=== PATIENT | female | born 1960 | race Caucasian/White ===

== ENCOUNTER 2018-05-10 21:24 | Emergency (ER) | payer SELFPAY ==
[~2018-05-10] VITALS: Ht 160 cm; Wt 70.8 kg
[~2018-05-10 21:24] MED LIST: METF500T PO
[2018-05-10 21:35] VITALS: BP 134/101
--- NOTE | 2018-05-10 21:42 | NUR ---
PT IN STABLE CONDITION, RETURNED TO LOBBY
--- NOTE | 2018-05-10 22:51 | NUR ---
PATIENT TO ER BED 3.
--- NOTE | 2018-05-10 22:53 | NUR ---
58/F CAME IN W C/O GENERALIZED HEADACHE X 1 WEEK. DENIES TRAUMA, REPORTS BLURRY VISION AND PHOTO-PHOBIA. DENIES N/V, FEVER/CHILLS. PMH: DM
[2018-05-10] MEDS ORDERED: DIAZEPAM 5 MG TAB PO ONE (23:30)
[2018-05-10] MEDS ORDERED: KETOROLAC 30 MG/ML VIAL IM ONE (23:30)
--- NOTE | 2018-05-10 23:34 | NUR ---
PT TAKEN TO CT
--- NOTE | 2018-05-11 00:43 | NUR ---
Patient discharged with v/s stable. Written and verbal after care instructions given and explained. Patient alert, oriented and verbalized understanding of instructions. Ambulatory with steady gait. All questions addressed prior to discharge. ID band removed. Patient advised to follow up with PMD. Rx of NAPROSYN, VALIUM given. Patient educated on indication of medication including possible reaction and side effects. Opportunity to ask questions provided and answered.
[2018-05-11 00:46] VITALS: BP 130/61
== END 2018-05-11 00:43 | disposition home or self-care (01) ==
LOC: MED 21:24
DX: R51 Headache (principal); M54.2 Cervicalgia; E11.9 Type 2 diabetes mellitus without complications; Z79.84 Long term (current) use of oral hypoglycemic drugs
CPT/HCPCS: 70450; 81002; 81025; 96372; 99284; J1885

== ENCOUNTER 2018-12-10 23:45 | Emergency (ER) | payer SELFPAY ==
[~2018-12-10] VITALS: Ht 160 cm; Wt 73.5 kg
[2018-12-10 23:55] VITALS: BP 119/58
--- NOTE | 2018-12-10 23:58 | NUR ---
TO LOBBY A/W BED, MARY ARZATE NOTED
[2018-12-11 00:33] LABS: BILIRUBIN,URINE NEGATIVE (NEGATIVE); BLOOD, URINE NEGATIVE (NEGATIVE); COLOR,URINE YELLOW (YELLOW); LEUKOCYTE ESTERASE ,URINE 1+ (NEGATIVE); NITRITE, URINE NEGATIVE (NEGATIVE); UGLUCOSE NEGATIVE (NEGATIVE)
[2018-12-11 00:39] LABS: APPEARANCE,URINE SLIGHTLY HAZY (CLEAR)
[2018-12-11 00:44] LABS: RBC,URINE 0-5 /HPF (0-5)
--- NOTE | 2018-12-11 00:56 | NUR ---
PT AMBULATED TO BED 2.
--- NOTE | 2018-12-11 01:00 | NUR ---
58/F PRESENTS TO ED, C/O BODYACHES, DYSURIA, EPIGASTRIC AND BL LOWER ABD PAIN, NUMBNESS ON BL HANDS AND BL FEET. PT REPORTS NAUSEA, DENIES VOMITING. DENIES FEVER/CHILLS, CONSTIPATION OR DIARRHEA. PT AOX4, GCS 15, RR EVEN AND UNLABORED. HX DM, GERD/GASTRITIS RX NONCOMPLIANT
--- NOTE | 2018-12-11 02:13 | NUR ---
DR DOUGLAS AT BEDSIDE
[2018-12-11] MEDS ORDERED: KETOROLAC 60 MG/2 ML VIAL IM ONE (02:20)
[2018-12-11 02:49] VITALS: BP 112/67
--- NOTE | 2018-12-11 02:50 | NUR ---
Patient discharged with v/s stable. Written and verbal after care instructions given and explained. Patient alert, oriented and verbalized understanding of instructions. Ambulatory with steady gait. All questions addressed prior to discharge. ID band removed. Patient advised to follow up with PMD. Rx of CIPRO, PYRIDIUM, MOTRIN, NORCO, ZOFRAN given. Patient educated on indication of medication including possible reaction and side effects. Opportunity to ask questions provided and answered.
== END 2018-12-11 02:44 | disposition home or self-care (01) ==
LOC: MED 23:45
DX: N12 Tubulo-interstitial nephritis, not specified as acute or chronic (principal); M79.10 Myalgia, unspecified site; E11.9 Type 2 diabetes mellitus without complications; K21.9 Gastro-esophageal reflux disease without esophagitis; Z79.84 Long term (current) use of oral hypoglycemic drugs
CPT/HCPCS: 81001; 82948; 87086; 96372; 99283; J1885

== ENCOUNTER 2018-12-21 10:40 | Emergency (ER) | payer MEDICAID ==
[~2018-12-21] VITALS: Ht 165.1 cm; Wt 70.4 kg
[2018-12-21 10:45] VITALS: BP 108/65
--- NOTE | 2018-12-21 10:55 | NUR ---
BIB FAMILY WITH C/O NAUSEA,DYSURIA,RT HIP PAIN RADIATING TO HER RLE X 5 DAYS. DENIES INJURY, VOMITING OR DIARRHEA.HX; DM. PATIENT POSITIONED FOR COMFORT; HOB ELEVATED; BEDRAILS UP X2; BED DOWN. ER MD MADE AWARE OF PT STATUS.
--- NOTE | 2018-12-21 11:05 | NUR ---
Dr. Paulson evaluating patient at bedside.
[2018-12-21] MEDS ORDERED: LEVOFLOXACIN 500 MG TAB PO ONE (11:15)
[2018-12-21] MEDS ORDERED: MORPHINE SULFATE 4 MG/ML SYR IM ONE (11:15)
[2018-12-21] MEDS ORDERED: KETOROLAC 60 MG/2 ML VIAL IM ONE (11:15)
--- NOTE | 2018-12-21 11:55 | NUR ---
Patient returned from XRAY. RN re-evaluating patient at bedside.
--- NOTE | 2018-12-21 13:19 | NUR ---
SON AT BEDSIDE.
[2018-12-21 13:25] VITALS: BP 100/61
--- NOTE | 2018-12-21 13:25 | NUR ---
Patient discharged with v/s stable. Written and verbal after care instructions given and explained. Patient alert, oriented and verbalized understanding of instructions. Ambulatory with steady gait. All questions addressed prior to discharge. ID band removed. Patient advised to follow up with PMD. Rx of BACTRIM & VOLTAREN given. Patient educated on indication of medication including possible reaction and side effects. Opportunity to ask questions provided and answered.
== END 2018-12-21 13:25 | disposition home or self-care (01) ==
LOC: MED 10:40
DX: M54.41 Lumbago with sciatica, right side (principal); N39.0 Urinary tract infection, site not specified; E11.9 Type 2 diabetes mellitus without complications; K21.9 Gastro-esophageal reflux disease without esophagitis; Z79.84 Long term (current) use of oral hypoglycemic drugs
CPT/HCPCS: 72100; 73502; 81002; 81025; 96372; 99283; J1885; J2270

== ENCOUNTER 2019-01-25 03:05 | Emergency (ER) | payer MEDICAID ==
[~2019-01-25] VITALS: Ht 154.9 cm; Wt 71.7 kg
[2019-01-25 03:11] VITALS: BP 124/56
--- NOTE | 2019-01-25 03:11 | NUR ---
PT TAKEN TO BED 6
--- NOTE | 2019-01-25 03:22 | NUR ---
Dr. Lane evaluating patient at bedside.
--- NOTE | 2019-01-25 03:22 | NUR ---
58/F DRIVEN TO ED BY FAMILY, C/O R LOWER BACK PAIN, RADIATING TO RLE, X3 DAYS. PT REPORTS SIMILAR SYMPTOMS 1 MONTH AGO, WAS SEEN HERE IN ER, DX DEGENERATIVE ARTHRITIS AND SCIATICA. PT DENIES FEVER, N/V/D, CONSTIPATION OR DYSURIA. AOX4, GCS 15, SKIN NORMAL WARM AND DRY, RR EVEN AND UNLABORED. HX DM, GASTRITIS, DEGENERATIVE ARTHRITIS, SCIATICA RX VOLTAREN WITHOUT RELIEF
[2019-01-25] MEDS ORDERED: CYCLOBENZAPRINE 10 MG TAB PO ONE (03:25)
[2019-01-25] MEDS ORDERED: KETOROLAC 30 MG/ML VIAL IM ONE (03:25)
[2019-01-25] MEDS ORDERED: MORPHINE SULFATE 4 MG/ML SYR IM ONE (03:55)
--- NOTE | 2019-01-25 03:55 | NUR ---
PT C/O PERSISTENT 8/10 R LOWER BACK PAIN, RADIATING TO RLE DESPITE TORADOL IM AND FLEXERIL PO. DR OSBORN MADE AWARE. PER DR OSBORN, VERBAL ORDER FOR MORPHINE 4MG IM ONCE AT THIS TIME.
[2019-01-25 04:41] VITALS: BP 130/54
--- NOTE | 2019-01-25 04:41 | NUR ---
Patient discharged with v/s stable. Written and verbal after care instructions given and explained. Patient alert, oriented and verbalized understanding of instructions. Ambulatory with steady gait. All questions addressed prior to discharge. ID band removed. Patient advised to follow up with PMD. Rx of FLEXERIL, IBUPROFEN given. Patient educated on indication of medication including possible reaction and side effects. Opportunity to ask questions provided and answered.
== END 2019-01-25 04:41 | disposition home or self-care (01) ==
LOC: MED 03:05
DX: M54.41 Lumbago with sciatica, right side (principal); E11.9 Type 2 diabetes mellitus without complications; K21.9 Gastro-esophageal reflux disease without esophagitis; Z79.84 Long term (current) use of oral hypoglycemic drugs
CPT/HCPCS: 96372; 99283; J1885; J2270

== ENCOUNTER 2019-01-25 16:45 | Emergency (ER) | payer MEDICAID ==
[~2019-01-25] VITALS: Ht 162.6 cm; Wt 70.3 kg
[2019-01-25 17:14] VITALS: BP 106/57
--- NOTE | 2019-01-25 17:20 | NUR ---
PT AMBULATED TO ER BED 06
--- NOTE | 2019-01-25 17:34 | NUR ---
PT BIB FAMILY FOR LOWER BACK PAIN X3 DAYS. PT REPORTS INTERMITENT LOWER BACK PAIN THAT RADIATES DOWN RIGHT LEG THAT INCREASES WHEN LAYING ON RT SIDE. PT DENIES TRAUMA, NO VISIBLE SWELLING, BRUISING, REDNESS, OR DEFORMITY. +CMS. VSS. ER TO SEE PT. MEDHX:DM RX:METFORMIN
[2019-01-25] MEDS ORDERED: MORPHINE SULFATE 4 MG/ML SYR IM ONE (19:15)
[2019-01-25] MEDS ORDERED: KETOROLAC 30 MG/ML VIAL IM ONE (19:15)
--- NOTE | 2019-01-25 19:30 | NUR ---
PT STATES 9/10 PAIN AT THIS TIME, WAS HERE LAST NIGHT AND RECIEVED THE SAME MEDS. INSURANCE DID NOT COVER HER MEDS SO SHE DID NOT START HER MEDS. PT SPEAKING IN COMPLETE SENTENCES W/ CLEAR SPEECH. COMFORT AND SAFETY MEASURES PROVIDED.
[2019-01-25 20:07] VITALS: BP 120/75
--- NOTE | 2019-01-25 20:07 | NUR ---
Patient discharged with v/s stable. Written and verbal after care instructions given and explained. Patient alert, oriented and verbalized understanding of instructions. Ambulatory with steady gait. All questions addressed prior to discharge. ID band removed. Patient advised to follow up with PMD. Rx of VALIUM AND NAPROSYN given. Patient educated on indication of medication including possible reaction and side effects. Opportunity to ask questions provided and answered.
== END 2019-01-25 20:07 | disposition home or self-care (01) ==
LOC: MED 16:45
DX: M54.41 Lumbago with sciatica, right side (principal); E11.9 Type 2 diabetes mellitus without complications; K21.9 Gastro-esophageal reflux disease without esophagitis; Z79.84 Long term (current) use of oral hypoglycemic drugs
CPT/HCPCS: 96372; 99283; J1885; J2270

== ENCOUNTER 2019-01-29 00:14 | Emergency (ER) | payer MEDICAID ==
[~2019-01-29] VITALS: Ht 157.5 cm; Wt 74.8 kg
[2019-01-29 00:19] VITALS: BP 150/84
--- NOTE | 2019-01-29 00:19 | NUR ---
PT PRESENTS TO ED WITH SEVERE RIGHT HIP, POSTERIOR UPPER/LOWER LEG, AND KNEE PAIN X3 DAYS. PT DENIES TRAUMA. NO BRUISING, REDNESS, OR EDEMA NOTED. CMS INTACT BILAT LOWER EXTREMITIES. NO DEFORMITIES NOTED. SEVERE 10/10 PAIN. WHEEL CHAIR ASSISTED TO BED. ASSISTED INTO BED. DIFFICULTY BENDING HIP AND KNEE. A&OX4 WITH VSS. ER MD AWARE. CONTINUE TO MONITOR.
--- NOTE | 2019-01-29 00:19 | NUR ---
PT TAKEN TO BED 5
--- NOTE | 2019-01-29 00:26 | NUR ---
Dr. Lane evaluating patient at bedside.
[2019-01-29] MEDS ORDERED: MORPHINE SULFATE 4 MG/ML SYR IVP ONE ×2 (00:30→01:35)
--- NOTE | 2019-01-29 00:51 | NUR ---
PT TAKEN TO CT
--- NOTE | 2019-01-29 01:05 | NUR ---
PT RETURN FROM CT
--- NOTE | 2019-01-29 01:22 | NUR ---
Ultrasound at bedside.
--- NOTE | 2019-01-29 01:29 | NUR ---
PT IN BED RESTING WITH EYES OPEN. PAIN HAS NOT CHANGED. DR OSBORN NOTIFIED. VSS. CONTINUE TO MONITOR.
[2019-01-29] MEDS ORDERED: CYCLOBENZAPRINE 10 MG TAB PO ONE (02:10)
[2019-01-29] MEDS ORDERED: cefTRIAXone 1,000 MG in LIDOCAINE MPF 1% - 5 mL VIAL 2.1 ML IM ONE (02:15)
[2019-01-29 02:16] LABS: APPEARANCE,URINE CLEAR (CLEAR); BILIRUBIN,URINE NEGATIVE (NEGATIVE); BLOOD, URINE TRACE-L (NEGATIVE); COLOR,URINE YELLOW (YELLOW); LEUKOCYTE ESTERASE ,URINE 2+ (NEGATIVE); NITRITE, URINE NEGATIVE (NEGATIVE); PH,URINE 5.5 (5.0-9.0); UGLUCOSE NEGATIVE (NEGATIVE)
[2019-01-29 02:33] LABS: RBC,URINE 0-5 /HPF (0-5)
[2019-01-29 02:34] LABS: WBC,URINE 16-25 (MOD) /HPF (0-5)
[2019-01-29 03:02] VITALS: BP 114/64
--- NOTE | 2019-01-29 03:02 | NUR ---
DISCHARGE PAPERS GIVEN TO PT. 12/30 PAIN BUT TOLLERABLE. PT ABLE TO AMBULATE SLOWY BY STEADY WITH PAIN PRESENT. CMS INTACT BILAT LOWER EXTREMITIES. VSS. RX OF MACROBID AND TRAMADOL GIVEN. SIDE EFFECTS EXPLAINED. INSTRUCTED TO F/U WITH PVP AND WHEN TO RETURN TO ER. PT VERBALLIZED UNDERSTANDING OF DC INSTRUCTIONS. ALL QUESTIONS ANSWERED. WHEEL CHAIR ESCORTED OUT OF ER TO VEHICLE.
== END 2019-01-29 03:02 | disposition home or self-care (01) ==
LOC: MED 00:14
DX: M54.41 Lumbago with sciatica, right side (principal); N39.0 Urinary tract infection, site not specified; E11.9 Type 2 diabetes mellitus without complications; K21.9 Gastro-esophageal reflux disease without esophagitis; Z79.84 Long term (current) use of oral hypoglycemic drugs
CPT/HCPCS: 72192; 81001; 87086; 93971; 96372; 96374; 96375; 99284; J0696; J2001; J2270; Q0092

== ENCOUNTER 2019-04-25 04:42 | Emergency (ER) | payer MEDICAID ==
[~2019-04-25] VITALS: Ht 157.5 cm; Wt 68.9 kg
[2019-04-25 04:46] VITALS: BP 119/59
[2019-04-25] MEDS ORDERED: KETOROLAC 60 MG/2 ML VIAL IM ONE (06:05)
[2019-04-25] MEDS ORDERED: MORPHINE SULFATE 4 MG/ML SYR IVP ONE (07:40)
[2019-04-25 08:40] VITALS: BP 105/62
== END 2019-04-25 08:38 | disposition home or self-care (01) ==
LOC: MED 04:42
DX: M54.40 Lumbago with sciatica, unspecified side (principal); R51 Headache; E11.9 Type 2 diabetes mellitus without complications; K21.9 Gastro-esophageal reflux disease without esophagitis; Z79.84 Long term (current) use of oral hypoglycemic drugs
CPT/HCPCS: 81002; 81025; 96372; 96374; 99283; J1885; J2270

== ENCOUNTER 2019-06-11 21:15 | Emergency (ER) | payer MEDICAID ==
[~2019-06-11] VITALS: Ht 154.9 cm; Wt 70.8 kg
[2019-06-11 21:25] VITALS: BP 124/64
--- NOTE | 2019-06-11 21:27 | NUR ---
PT AMBULATED TO LOBBY.
--- NOTE | 2019-06-11 22:57 | NUR ---
PT AMBULATED TO BED 01.
--- NOTE | 2019-06-12 | NUR ---
PT C/O DIFFICULTY EATING. PT STATES SHE TRIES TO EAT BUT DOESNT HAVE AN APPETITE. C/O INTERMITTENT ABD PAIN. ABD SOFT, ROUND,NON TENDER BOWEL SOUNDS X4 QUAD. SHARP PAIN IN CHEST AT 16OO TODAY 1 TIME. RR EVEN, UNLABORED. DENIES SOB. PT RESTING IN BED, CALM AND PLEASANT. MEDHX: DM, ARTHRITIS ALLERGIES: DENIES
[2019-06-12] MEDS ORDERED: PANTOPRAZOLE 40 MG TABEC PO ONE (00:10)
--- NOTE | 2019-06-12 00:43 | NUR ---
PT RESTING IN BED WITH EYES CLOSED, VSS. NO COMPLAINTS AT THIS TIME
--- NOTE | 2019-06-12 01:24 | NUR ---
Patient discharged with v/s stable. Written and verbal after care instructions given and explained. Patient alert, oriented and verbalized understanding of instructions. Ambulatory with to home. All questions addressed prior to discharge. ID band removed. Patient advised to follow up with PMD. Rx of PROTONIX given. Patient educated on indication of medication including possible reaction and side effects. Opportunity to ask questions provided and answered.
[2019-06-12 01:25] VITALS: BP 124/64
== END 2019-06-12 01:24 | disposition home or self-care (01) ==
LOC: MED 21:15
DX: K29.70 Gastritis, unspecified, without bleeding (principal); K21.9 Gastro-esophageal reflux disease without esophagitis; E11.9 Type 2 diabetes mellitus without complications; Z79.84 Long term (current) use of oral hypoglycemic drugs
CPT/HCPCS: 70360; 99283

== ENCOUNTER 2019-08-04 05:35 | Emergency (ER) | payer MEDICAID ==
[~2019-08-04] VITALS: Ht 162.6 cm; Wt 69.4 kg
--- NOTE | 2019-08-04 05:35 | NUR ---
pt ambulated to bed #7
[2019-08-04 05:50] VITALS: BP 125/55
--- NOTE | 2019-08-04 05:50 | NUR ---
59 Y/O FEMALE C/O OF NECK PAIN X3 DAYS. PATIENT STATES, " I HAVEN'T BEEN ABLE TO SLEEP BECAUSE OF THE PAIN". DENIES N/V/D/FEVER CHILLS". PATIENT SO THAT SHE TOOK IBUPROFEN AND TYLEONOL FOR THE PAIN WITH SOME RELIEF. A/0 X4 AND FOLLOWS COMMANDS. BREATHING UNLABORED AND SYMMETRICAL. SOME RANGE OF MOTION NOTED ON THE NECK. PAIN IS A 9/10 WITH FACIAL GRIMACING. ERMD MADE AWARE. SIDE RAILS X1. WILL CONTINUE TO MONITOR. PMH:DIABETES NKDA RX:METFORMIN
--- NOTE | 2019-08-04 06:01 | NUR ---
Dr. Guillen examining patient.
[2019-08-04] MEDS ORDERED: KETOROLAC 60 MG/2 ML VIAL IM ONE (06:05)
--- NOTE | 2019-08-04 06:13 | NUR ---
Sandro hurtado in ED - 08/04/19 at 0622 by SALLIE PT RETURN FROM XRAY
--- NOTE | 2019-08-04 06:22 | NUR ---
PT RETURN FROM XRAY
--- NOTE | 2019-08-04 06:22 | NUR ---
Sandro hurtado in [facility] - 08/04/19 at 0622 by SALLIE PT RETURN FROM CT
[2019-08-04] MEDS ORDERED: LORazepam 2 MG/ML VIAL IM ONE (06:45)
[2019-08-04 07:10] VITALS: BP 125/55
--- NOTE | 2019-08-04 07:11 | NUR ---
Patient discharged with v/s stable. Written and verbal after care instructions given and explained. Patient alert, oriented and verbalized understanding of instructions. Ambulatory with steady gait. All questions addressed prior to discharge. ID band removed. Patient advised to follow up with PMD. Rx of MOTRIN; ROBAXIN; TRAMADOL given. Patient educated on indication of medication including possible reaction and side effects. Opportunity to ask questions provided and answered.
== END 2019-08-04 07:11 | disposition home or self-care (01) ==
LOC: MED 05:35
DX: M43.6 Torticollis (principal); E11.9 Type 2 diabetes mellitus without complications; K21.9 Gastro-esophageal reflux disease without esophagitis; Z79.899 Other long term (current) drug therapy
CPT/HCPCS: 72040; 96372; 99283; J1885; J2060

== ENCOUNTER 2020-02-02 04:10 | Emergency (ER) | payer MEDICAID ==
[~2020-02-02] VITALS: Ht 160 cm; Wt 72.1 kg
[2020-02-02 04:19] VITALS: BP 121/62
--- NOTE | 2020-02-02 04:25 | NUR ---
59 YEAR OLD FEMALE COMPLAINS OF NECK PAIN X 5 DAYS. PER PT HER NECK PAIN HAS GOTTEN PROGRESSIVELY WORSE, STILL ABLE TO MOVE WITH ROM. PATIENT AOX4, BREATHING EVEN AND UNLABORED, SKIN WARM AND DRY. BED IN LOWEST POSIITON, LOCKED, BED RAIL UPX1. PMH - DM2, ARTHRITIS (SPINE) ALLERGIES - NKA
--- NOTE | 2020-02-02 04:25 | NUR ---
PT AMBULATED TO BED 2 WITH STEADY GAIT. NEGATIVE COVID SCREEN.
--- NOTE | 2020-02-02 04:27 | NUR ---
Dr. Hdez examining patient.
[2020-02-02] MEDS ORDERED: LORazepam 2 MG/ML VIAL IM ONE (04:35)
[2020-02-02] MEDS ORDERED: KETOROLAC 30 MG/ML VIAL IM ONE (04:35)
--- NOTE | 2020-02-02 04:47 | NUR ---
PER STAKING ENGINEER THEY DO NOT HAVE ANY LIDODERM PATCH MEDICATION, HERMILOD MADE AWARE
[2020-02-02 05:10] VITALS: BP 121/62
--- NOTE | 2020-02-02 05:10 | NUR ---
Patient discharged with v/s stable. Written and verbal after care instructions about cervical sprain and torticollis given and explained. Patient alert, oriented and verbalized understanding of instructions. Ambulatory with steady gait. All questions addressed prior to discharge. ID band removed. Patient advised to follow up with PMD. Rx of lidocaine 5% transdermal patch given. Patient educated on indication of medication including possible reaction and side effects. Opportunity to ask questions provided and answered.
[2020-02-02] MEDS ORDERED: LIDOCAINE 5% 1 EA PATCH TP SCH (09:00)
== END 2020-02-02 05:10 | disposition home or self-care (01) ==
LOC: MED 04:10
DX: M54.2 Cervicalgia (principal); G89.29 Other chronic pain; E11.9 Type 2 diabetes mellitus without complications; K21.9 Gastro-esophageal reflux disease without esophagitis; Z79.84 Long term (current) use of oral hypoglycemic drugs
CPT/HCPCS: 96372; 99284; J1885; J2060

== ENCOUNTER 2020-02-05 12:44 | Emergency (ER) | payer MEDICAID ==
[~2020-02-05] VITALS: Ht 154.9 cm; Wt 71.7 kg
[2020-02-05 13:02] VITALS: BP 124/70
[2020-02-05] MEDS ORDERED: KETOROLAC 60 MG/2 ML VIAL IM ONE (13:10)
--- NOTE | 2020-02-05 13:31 | NUR ---
COVERING PRIMARY RN FOR LUNCH RELIEF -- 59/F FROM TRIAGE FOR NECK PAIN. DENIES INJURY/TRAUMA. PT UNABLE TO ROTATE NECK DUE TO PAIN. IN BED FOR MSE.
--- NOTE | 2020-02-05 13:50 | NUR ---
PT REPORTS MILD RELIEF OF PAIN WITH TORADOL. RATES PAIN AT 6/10.
--- NOTE | 2020-02-05 14:01 | NUR ---
Patient discharged with v/s stable. Written and verbal after care instructions given and explained. Patient alert, oriented and verbalized understanding of instructions. Ambulatory with steady gait. All questions addressed prior to discharge. ID band removed. Patient advised to follow up with PMD. Rx of NORCO, MOTRIN given. Patient educated on indication of medication including possible reaction and side effects. Opportunity to ask questions provided and answered.
[2020-02-05 14:02] VITALS: BP 124/70
== END 2020-02-05 14:02 | disposition home or self-care (01) ==
LOC: MED 12:44
DX: S13.4XXA Sprain of ligaments of cervical spine, initial encounter (principal); E11.9 Type 2 diabetes mellitus without complications; K21.9 Gastro-esophageal reflux disease without esophagitis; Z98.890 Other specified postprocedural states; Z79.84 Long term (current) use of oral hypoglycemic drugs; X58.XXXA Exposure to other specified factors, initial encounter; Y93.89 Activity, other specified; Y92.89 Other specified places as the place of occurrence of the external cause; Y99.8 Other external cause status
CPT/HCPCS: 96372; 99283; J1885

== ENCOUNTER 2020-03-20 17:40 | Emergency (ER) | payer MEDICAID, SELFPAY ==
[~2020-03-20] VITALS: Ht 162.6 cm; Wt 91.2 kg
[2020-03-20 17:40] VITALS: BP 138/109
--- NOTE | 2020-03-20 18:26 | NUR ---
PATIENT MOVED FROM TENT TO BED 9
--- NOTE | 2020-03-20 18:56 | NUR ---
pt bib family c/o anxiety x 1 hour s/p pt son sts "my mom hyperventilating because she got a phone call about my Aunt that upset." HX-DM, covid pos 02/29/2020, pain 0/10, accu 196. PT DENIES N/V/D; SKIN IS INTACT, PINK/WARM/DRY; AAOX4, PERRL, WITH EVEN AND STEADY GAIT; LUNGS CLEAR BL, BREATHING UNLABORED; HR EVEN AND REGULAR, BL PERIPHERAL PULSES PRESENT; BS ACTIVE X4, NO TENDERNESS TO PALPATION. PT DENIES ANY FEVER, CP, SOB, OR COUGH AT THIS TIME; PT STATES 0/10 PAIN AT THIS TIME; VSS; PATIENT POSITIONED FOR COMFORT; HOB ELEVATED; BEDRAILS UP X2; BED DOWN.
--- NOTE | 2020-03-20 18:58 | NUR ---
pt c/o quan upper mid-line cp with no sob er md notifted. xray at bedside
--- NOTE | 2020-03-20 19:25 | NUR ---
REPORT RECEIVED FROM ENEIDA BERNABE, TRANSFER OF CARE AT THIS TIME
--- NOTE | 2020-03-20 20:43 | NUR ---
PT ALERT AND AWAKE, BREATHING EVEN AND UNLABORED. PT INFORMED WAITING FOR ERMD
--- NOTE | 2020-03-20 21:09 | NUR ---
URINE DIP GIVEN TO MARINE
[2020-03-20 21:12] VITALS: BP 138/109
--- NOTE | 2020-03-20 21:12 | NUR ---
Patient discharged by Dr Garrison. Written and verbal after care instructions about viral gastroenteritis given and explained. Patient verbalized understanding. Ambulatory with steady gait. All questions addressed prior to discharge. Advised to follow up with PMD.
== END 2020-03-20 20:14 | disposition home or self-care (01) ==
LOC: MED 17:40 → EEVIPCON 17:40 → MED 20:14
DX: B34.9 Viral infection, unspecified (principal); E11.9 Type 2 diabetes mellitus without complications; K21.9 Gastro-esophageal reflux disease without esophagitis; Z79.84 Long term (current) use of oral hypoglycemic drugs
CPT/HCPCS: 71045; 81002; 93005; 99283; Q0092

== ENCOUNTER 2022-02-24 06:47 | Emergency (ER) | payer MEDICAID ==
[~2022-02-24] VITALS: Ht 157.5 cm; Wt 69.4 kg
[~2022-02-24 06:47] MED LIST changes: +METF-346 PO; -METF500T PO
[2022-02-24 06:50] VITALS: BP 122/68
--- NOTE | 2022-02-24 06:50 | NUR ---
to bed ambulatory
--- NOTE | 2022-02-24 07:06 | NUR ---
ermd brent at bedside examining pt.
[2022-02-24] MEDS ORDERED: CYCLOBENZAPRINE 10 MG TAB PO ONE (07:10)
[2022-02-24] MEDS ORDERED: KETOROLAC 30 MG/ML VIAL IM ONE (07:10)
--- NOTE | 2022-02-24 07:15 | NUR ---
62 y/o F BIB self from home c/o bilateral neck pain x 10 day. Patient A&Ox4, ambulatory, states pain worsen, 8/10, sharp/constant, non-radiating. States naproxen without relief prior to arrival. Denies trauma/injury, numbness, tingling, blurry vision, NUNEZ. Bed locked in lowest position, side rails x 1. PMH: DM2 Meds: metformin NKDA
[2022-02-24] MEDS ORDERED: CRUSHER, PILL MC ONE (07:17)
[2022-02-24] MEDS ORDERED: CYCL-654 PO (07:40)
--- NOTE | 2022-02-24 07:40 | NUR ---
Dr. Blum is reevaluating pt at bedside
--- NOTE | 2022-02-24 07:42 | NUR ---
Patient discharged with v/s stable. Written and verbal after care instructions given and explained. Patient verbalized understanding. Ambulatory with steady gait. All questions addressed prior to discharge. Advised to follow up with PMD.
== END 2022-02-24 07:42 | disposition home or self-care (01) ==
LOC: MED 06:47
DX: M54.2 Cervicalgia (principal); E11.9 Type 2 diabetes mellitus without complications; Z79.4 Long term (current) use of insulin
CPT/HCPCS: 96372; 99283; J1885

== ENCOUNTER 2023-08-18 02:11 | Emergency (ER) | payer MEDICAID ==
[~2023-08-18] VITALS: Ht 152.4 cm; Wt 70.8 kg
[~2023-08-18 02:11] MED LIST changes: +CYCL-654 PO
[2023-08-18 02:36] VITALS: BP 127/71; PULSE 95; RESP 19; TEMP 98; O2SAT 98
[2023-08-18 03:18] LABS: BASOPHILS # (AUTO) 0.1 K/uL (0.00-0.22); BASOPHILS % (AUTO) 0.4 % (0.0-2.0); EOSINOPHILS # (AUTO) 0.2 K/uL (0-0.4); EOSINOPHILS % (AUTO) 1.5 % (0.0-4.0); HEMATOCRIT 39.9 % (36-48); HEMOGLOBIN 13.2 g/dL (12.0-16.0); LYMPHOCYTES % (AUTO) 22.2 % (20.5-51.1); MEAN CORPUSCULAR HEMOGLOBIN 28 pg (27-31); MEAN CORPUSCULAR HGB CONC 33 g/dL (33-37); MONOCYTES % (AUTO) 7.3 % (1.7-9.3); NEUTROPHILS # (AUTO) 9.2 K/uL (1.8-7.7); NEUTROPHILS % (AUTO) 68.6 % (42.2-75.2); PLATELET COUNT (AUTO) 273 K/uL (140-450); RED BLOOD CELL COUNT(AUTO) 4.75 MIL/uL (4.20-5.40); RED CELL DISTRIBUTION WIDTH 15.4 % (11.6-13.7); WHITE BLOOD COUNT (AUTO) 13.4 K/uL (4.8-10.8)
[2023-08-18 03:43] LABS: ALANINE AMINOTRANSFERASE 21 U/L (12-78); ALBUMIN 3.8 g/dL (3.4-5.0); ALKALINE PHOSPHATASE 84 U/L (50-136); ANION GAP 13.9 (8-16); ASPARTATE AMINOTRANSFERASE 14 U/L (15-37); CALCIUM 8.9 mg/dL (8.5-10.1); CARBON DIOXIDE 30.3 mmol/L (21-32); CHLORIDE 101 mmol/L (98-107); CREATININE 0.8 mg/dL (0.6-1.3); GFR ARICAN-AMERICAN 94 mL/min (>90); GFR NON ARICAN-AMERICAN 78 mL/min (>90); GLUCOSE 267 mg/dL (74-106); LIPASE 53 U/L (16-77); POTASSIUM 4.2 mmol/L (3.5-5.1); SODIUM SERUM 141 mmol/L (136-145); TOTAL BILIRUBIN 0.3 mg/dL (0.0-1.0); TOTAL PROTEIN, SERUM 7.7 g/dL (6.4-8.2); UREA NITROGEN, BLOOD 18 mg/dL (7-18)
[2023-08-18] MEDS ORDERED: KETOROLAC 60 MG/2 ML VIAL IM ONE (04:40)
[2023-08-18] MEDS ORDERED: ACETAMINOPHEN EXTRA STRENGTH 500 MG TAB PO ONE (04:40)
[2023-08-18] MEDS ORDERED: LEVO750T75 PO (04:51)
[2023-08-18 05:01] VITALS: O2SAT 98
== END 2023-08-18 05:33 | disposition home or self-care (01) ==
LOC: MED 02:11
DX: J18.1 Lobar pneumonia, unspecified organism (principal); E11.9 Type 2 diabetes mellitus without complications; K21.9 Gastro-esophageal reflux disease without esophagitis; Z79.899 Other long term (current) drug therapy; Z79.4 Long term (current) use of insulin
CPT/HCPCS: 36415; 71045; 80053; 83690; 84484; 85025; 93005; 96372; 99285; J1885

== ENCOUNTER 2024-04-21 05:20 | Emergency (ER) | payer MEDICAID ==
[~2024-04-21] VITALS: Ht 160 cm; Wt 68.0 kg
[~2024-04-21 05:20] MED LIST changes: +LEVO750T75 PO
[2024-04-21 05:26] VITALS: BP 132/76; PULSE 72; RESP 18; TEMP 98; O2SAT 98
[2024-04-21] MEDS: KETOROLAC 30 MG/ML VIAL IM ONE (06:34)
[2024-04-21] MEDS: CYCLOBENZAPRINE 10 MG TAB PO ONE (06:34)
[2024-04-21] MEDS: LIDOCAINE 5% 1 EA PATCH TP ONE (06:51)
[2024-04-21] MEDS ORDERED: LID5T TP (07:35)
[2024-04-21] MEDS ORDERED: CYCL-711 PO (07:35)
== END 2024-04-21 07:40 | disposition home or self-care (01) ==
LOC: MED 05:20
DX: M71.22 Synovial cyst of popliteal space [Baker], left knee (principal); M25.512 Pain in left shoulder; M25.511 Pain in right shoulder; R51.9 Headache, unspecified; E11.9 Type 2 diabetes mellitus without complications; K21.9 Gastro-esophageal reflux disease without esophagitis; Z79.84 Long term (current) use of oral hypoglycemic drugs; Z79.2 Long term (current) use of antibiotics; Z79.899 Other long term (current) drug therapy
CPT/HCPCS: 73700; 93971; 96372; 99285; J1885; Q0092